=== PATIENT | female | born 1975 | race Caucasian/White ===

== ENCOUNTER 2020-11-23 11:22 | Emergency (ER) | payer SELFPAY ==
[~2020-11-23] VITALS: Ht 149.9 cm; Wt 70.3 kg
[2020-11-23 11:26] VITALS: BP 138/39
--- NOTE | 2020-11-23 11:32 | NUR ---
PT AMBULATED TO BED 11
[2020-11-23] MEDS ORDERED: NACL 0.9% 1,000 ML IV ONE (11:50)
--- NOTE | 2020-11-23 11:55 | NUR ---
45/F presents to ED with c/o dizziness for 1 week. Patient states she has had intermittent episodes of dizziness over the last week with no relief. States "I was on my period for two weeks and I dont know if it is related." Patient states she has had nausea and vomiting yesterday, denies diarrhea, headache, ringing in the ears or blurred vision. Patient states no dizziness at this time while she is lying down but states it begins again when she attempts to get up. Patient alert and oriented x4, answering questions appropriately in clear full sentences.
[2020-11-23 12:57] LABS: BASOPHILS % (AUTO) 0.3 % (0.0-2.0); EOSINOPHILS % (AUTO) 0.2 % (0.0-4.0); HEMATOCRIT 21.7 % (36-48); LYMPHOCYTES # (AUTO) 1.1 K/uL (2.5-16.5); LYMPHOCYTES % (AUTO) 12.2 % (20.5-51.1); MEAN CORPUSCULAR HEMOGLOBIN 24 pg (27-31); MEAN CORPUSCULAR HGB CONC 32 g/dL (33-37); MEAN CORPUSCULAR VOLUME 75.3 fL (80-94); MONOCYTES # (AUTO) 0.5 K/uL (0.8-1.0); MONOCYTES % (AUTO) 5.6 % (1.7-9.3); NEUTROPHILS # (AUTO) 7.4 K/uL (1.8-7.7); NEUTROPHILS % (AUTO) 81.7 % (42.2-75.2); PLATELET COUNT (AUTO) 369 K/uL (140-450); RED BLOOD CELL COUNT(AUTO) 2.88 MIL/uL (4.20-5.40); RED CELL DISTRIBUTION WIDTH 17.5 % (11.6-13.7); WHITE BLOOD COUNT (AUTO) 9.1 K/uL (4.8-10.8)
[2020-11-23 13:04] LABS: APPEARANCE,URINE CLEAR (CLEAR); BILIRUBIN,URINE NEGATIVE (NEGATIVE); BLOOD, URINE TRACE-I (NEGATIVE); COLOR,URINE YELLOW (YELLOW); LEUKOCYTE ESTERASE ,URINE NEGATIVE (NEGATIVE); NITRITE, URINE NEGATIVE (NEGATIVE); PH,URINE 7.5 (5.0-9.0); UGLUCOSE NEGATIVE (NEGATIVE)
[2020-11-23 13:04] LABS: HEMOGLOBIN 6.9 g/dL (12.0-16.0)
[2020-11-23 13:06] LABS: ALBUMIN 3.7 g/dL (3.4-5.0); ANION GAP 11.7 (8-16); CARBON DIOXIDE 28.7 mmol/L (21-32); CREATININE 0.7 mg/dL (0.6-1.3); POTASSIUM 3.4 mmol/L (3.5-5.1); TOTAL BILIRUBIN 0.2 mg/dL (0.0-1.0)
[2020-11-23] MEDS ORDERED: FERR325E14 PO (13:13)
[2020-11-23 13:25] LABS: RBC,URINE 0-5 /HPF (0-5); WBC,URINE 0-5 /HPF (0-5)
--- NOTE | 2020-11-23 14:00 | NUR ---
Patient resting in bed, awaiting lab results, all needs met at this time.
--- NOTE | 2020-11-23 15:20 | NUR ---
Consent signed per patient, doctor and myself agreeing to administration of blood. Blood has been type and crossmatched. Blood sent from blood bank. Information on unit of blood checked against patient wristband at bedside by two nurses. All information matches. Patient or responsible alliance party informed of potential complications associated with blood transfusion. Informed of possible transfusion reaction symptoms. Aware of need to notify nurse at once of itching, shortness of breath, flushing, feeling of impending doom, or other symptoms not previously present. Vital signs taken within 5 minutes prior to initiation of transfusion. RN will remain with patient for first 15 minutes of transfusion at which time vital signs will be re-assessed.
--- NOTE | 2020-11-23 17:00 | NUR ---
Patient resting, blood transfusion still in process, patient denies any pain or distress, vital signs stable, all needs are met. Call light within reach.
[2020-11-23 18:52] VITALS: BP 116/51
--- NOTE | 2020-11-23 18:52 | NUR ---
Patient discharged with v/s stable. Written and verbal after care instructions given and explained. Patient alert, oriented and verbalized understanding of instructions. Ambulatory with steady gait. All questions addressed prior to discharge. ID band removed. Patient advised to follow up with PMD. Rx of Ferrous Sulfate given. Patient educated on indication of medication including possible reaction and side effects. Opportunity to ask questions provided and answered.
== END 2020-11-23 18:52 | disposition home or self-care (01) ==
LOC: MED 11:22
DX: D64.9 Anemia, unspecified (principal); N92.0 Excessive and frequent menstruation with regular cycle
CPT/HCPCS: 36415; 36430; 76856; 80053; 81001; 81025; 83690; 84703; 85025; 86886; 86900; 86901; 86920; 93976; 96360; 99285; J7030; P9016

== ENCOUNTER 2022-09-24 17:39 | Emergency (ER) | payer SELFPAY ==
[~2022-09-24] VITALS: Ht 149.9 cm; Wt 61.2 kg
[~2022-09-24 17:39] MED LIST: FERR325E14 PO
[2022-09-24 17:48] VITALS: BP 148/89
--- NOTE | 2022-09-24 18:18 | NUR ---
47 YO FEMALE PRESENTS TO THE ED WITH COMPLAINTS OF VAGINAL BLEEDING FOR 2 MONTHS. STATES MINOR PAIN TO PELVIC AREA THAT COMES AND GOES. DENIES ANY PMH OR ALLERGIES.
[2022-09-24 18:41] LABS: BASOPHILS % (AUTO) 0.6 % (0.0-2.0); EOSINOPHILS % (AUTO) 0.5 % (0.0-4.0); HEMATOCRIT 36.7 % (36-48); HEMOGLOBIN 11.8 g/dL (12.0-16.0); LYMPHOCYTES # (AUTO) 1.5 K/uL (2.5-16.5); LYMPHOCYTES % (AUTO) 18.3 % (20.5-51.1); MEAN CORPUSCULAR HEMOGLOBIN 26 pg (27-31); MEAN CORPUSCULAR HGB CONC 32 g/dL (33-37); MEAN CORPUSCULAR VOLUME 81.3 fL (80-94); MONOCYTES # (AUTO) 0.3 K/uL (0.8-1.0); MONOCYTES % (AUTO) 4.2 % (1.7-9.3); NEUTROPHILS # (AUTO) 6.3 K/uL (1.8-7.7); NEUTROPHILS % (AUTO) 76.4 % (42.2-75.2); PLATELET COUNT (AUTO) 317 K/uL (140-450); RED BLOOD CELL COUNT(AUTO) 4.52 MIL/uL (4.20-5.40); RED CELL DISTRIBUTION WIDTH 16.3 % (11.6-13.7); WHITE BLOOD COUNT (AUTO) 8.2 K/uL (4.8-10.8)
[2022-09-24 18:55] LABS: ALBUMIN 4.1 g/dL (3.4-5.0); ANION GAP 10.7 (8-16); CARBON DIOXIDE 30.9 mmol/L (21-32); CREATININE 0.8 mg/dL (0.6-1.3); POTASSIUM 3.6 mmol/L (3.5-5.1); TOTAL BILIRUBIN 0.1 mg/dL (0.0-1.0)
--- NOTE | 2022-09-24 19:19 | NUR ---
GAVE REPORT TO MARYLU PAREKH
[2022-09-24] MEDS ORDERED: FERR325E14 PO (20:09)
[2022-09-24] MEDS ORDERED: IBUP-2218 PO (20:09)
[2022-09-24 20:37] VITALS: BP 148/89
--- NOTE | 2022-09-24 20:37 | NUR ---
Patient discharged with v/s stable. Written and verbal after care instructions given and explained. Patient alert, oriented and verbalized understanding of instructions. Ambulatory with steady gait. All questions addressed prior to discharge. ID band removed. Patient advised to follow up with PMD. Rx of IRON, IBUPROFEN given. Patient educated on indication of medication including possible reaction and side effects. Opportunity to ask questions provided and answered.
== END 2022-09-24 20:37 | disposition home or self-care (01) ==
LOC: MED 17:39
DX: D25.9 Leiomyoma of uterus, unspecified (principal); D64.9 Anemia, unspecified; R42 Dizziness and giddiness; R53.1 Weakness; Z79.899 Other long term (current) drug therapy
CPT/HCPCS: 36415; 76856; 80053; 81025; 85025; 86886; 86900; 86901; 99284; Q0092